=== PATIENT | female | born 1970 | race Caucasian/White ===

== ENCOUNTER 2018-09-15 08:10 | Emergency (ER) | payer SELFPAY ==
[2018-09-15 08:18] VITALS: BP 139/79; TEMP 98.4
[2018-09-15] MEDS ORDERED: TOPROL XL100 MG PO (08:46)
[2018-09-15] MEDS ORDERED: PRINIVIL20 MG PO (08:46)
[2018-09-15] MEDS ORDERED: ZETIA 10MG TAB10 MG PO (08:47)
[2018-09-15] MEDS ORDERED: HCTZ 25MG TAB25 MG PO (08:47)
[2018-09-15] MEDS ORDERED: ZOCOR5 MG PO (08:47)
[2018-09-15] MEDS ORDERED: NORVASC 5MG5 MG/TAB PO (08:47)
[2018-09-15 09:21] VITALS: PULSE 94
== END 2018-09-15 09:22 | disposition home or self-care (01) ==
LOC: COL.ER 08:10
DX: G43.909 Migraine, unspecified, not intractable, without status migrainosus (principal); I10 Essential (primary) hypertension; Z90.710 Acquired absence of both cervix and uterus; Z79.82 Long term (current) use of aspirin
CPT/HCPCS: J3030